=== PATIENT | female | born 1980 | race Two or more races ===

== ENCOUNTER 2023-03-10 11:06 | Emergency (ER) | payer SELFPAY ==
[~2023-03-10] VITALS: Ht 152.4 cm; Wt 59.3 kg
[2023-03-10] MEDS ORDERED: MECLIZINE HCL 25 MG TAB PO ONE (11:15)
[2023-03-10 11:46] LABS: Basophils # (auto) 0.1 10 ^3/uL (0-0.2); Lymphocytes # (auto) 1.5 10 ^3/uL (0.4-5.4); Monocytes # (auto) 0.4 10 ^3/uL (0-1.3); Neutrophils # (auto) 5.5 10 ^3/uL (1.6-8.6); Red Blood Cells 5.24 10^6/uL (4.0-5.20)
[2023-03-10 11:48] LABS: Basophils % (auto) 0.7 % (0.0-2.0); Eosinophils # (auto) 0 10 ^3/uL (0-0.8); Eosinophils % (auto) 0.6 % (0.0-7.0); Hematocrit 40.4 % (36.0-46.0); Hemoglobin 13.3 g/dL (12.2-16.2); Lymphocytes % (auto) 19.9 % (10.0-50.0); Mean Corpuscular Hemoglobin 25.4 pg (28.0-32.0); Mean Corpuscular Hgb Conc. 32.9 g/dL (32.0-36.0); Mean Corpuscular Volume 77.1 fL (80.0-100.0); Monocytes % (auto) 5.6 % (0.0-12.0); Neutrophils % (auto) 73.2 % (37.0-80.0); Nucleated Red Blood Cells % 0.1 %; Red Cell Distribution Width 14.6 % (11.8-14.3); White Blood Cell 7.6 10^3/uL (4.4-10.8)
[2023-03-10 11:50] LABS: Urine Bacteria FEW /hpf (None Seen); Urine Blood Negative /uL (Negative); Urine Clarity Clear (Clear); Urine Color Colorless (Yellow); Urine Protein, UAD Negative (Negative); Urine Specific Gravity 1.004 (1.001-1.035); Urine Urobilinogen Normal (Negative); Urine WBC 1 /hpf (0 - 5); Urine pH 6.5 (5.0-8.0)
[2023-03-10 11:56] LABS: Alanine Aminotransferase 14 U/L (7-40); Albumin 4.8 g/dL (3.2-4.8); Alkaline Phosphatase 74 U/L (46-116); Anion Gap 7 (5-15); Aspartate Aminotransferase 12 U/L (13-40); Blood Urea Nitrogen 6 mg/dL (9-23); Calcium 9.1 mg/dL (8.7-10.4); Carbon Dioxide 26 mmol/L (20-30); Chloride 104 mmol/L (98-107); Glucose 96 mg/dL (74-106); Potassium 3.3 mmol/L (3.5-5.1); Sodium 137 mmol/L (136-145)
[2023-03-10 11:57] LABS: Total Protein 8.3 g/dL (5.7-8.2)
[2023-03-10] MEDS ORDERED: ONDANSETRON ODT 4 MG TAB PO ONE (12:00)
[2023-03-10 12:49] VITALS: BP 150/74; PULSE 56; RESP 18; TEMP 97.9; O2SAT 99
[2023-03-10] MEDS ORDERED: MECL25CH85 PO (14:01)
[2023-03-10] MEDS ORDERED: ZOFR4T PO (14:01)
== END 2023-03-10 14:13 | disposition admitted as inpatient to this hospital (09) ==
LOC: ER 11:06
DX: R42 Dizziness and giddiness (principal)
CPT/HCPCS: 36415; 80053; 81001; 81025; 85025; 93005; 99284; J8597; Q0162